=== PATIENT | female | born 1960 | race Caucasian/White ===

== ENCOUNTER 2016-06-26 06:39 | Inpatient (IN) | payer BC ==
--- NOTE | 2016-06-26 07:32 | EDM.PDOC ---
ED HPI GENERAL MEDICAL PROBLEM - General Chief Complaint: General Stated Complaint: NAUSA FEVER Time Seen by Provider: 06/26/16 07:48 Source of Information: Reports: Patient History Limitations: Reports: No limitations - History of Present Illness INITIAL COMMENTS - FREE TEXT/NARRATIVE: pt has had a fever and she has had pain in the lower abdoman. She states this is more on the left than the rt. She has had some mucousy stools. She has not vomited but she has been nauseated. She had a colonoscopy 3-4 years ago. She has had a total hysterectomy. Onset: gradual Duration: Day(s):, Other (pt took a laxative yesterday and she did clean out well. ) Location: Reports: abdomen Associated Symptoms: Reports: loss of appetite, nausea/vomiting Back Pain Score (Numeric/FACES): 3 - Related Data Allergies Allergy/AdvReac Type Severity Reaction Status Date / Time doxycycline Allergy Hives Verified 12/13/15 14:22 Sulfa (Sulfonamide Allergy Hives Verified 12/13/15 14:22 Antibiotics) trimethoprim Allergy Hives Verified 12/13/15 14:22 Home Meds: Home Meds Albuterol [Proair HFA] 1 puff PO ASDIRECTED PRN 12/13/15 [History] Estradiol 1 mg PO DAILY 12/13/15 [History] Formoterol/Mometasone [Dulera 100 MCG/5 MCG] 120 mg PO DAILY 12/13/15 [History] Levothyroxine [Synthroid] 50 mcg PO ACBREAKFAST 12/13/15 [History] Montelukast [Singulair] 10 mg PO BEDTIME 12/13/15 [History] Multivitamin [Multi-Vitamin Daily] 1 tab PO DAILY 06/26/16 [History] [place]-3 Fatty Acids [Fish Oil] 300 mg PO ASDIRECTED 06/26/16 [History] Amoxicillin/Potassium Clav [Augmentin 875-125 Tablet] 1 each PO BID #14 tablet 06/29/16 [Rx] Past Medical History 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 able to urinate since fell Endocrine/Metabolic History: Reports: Hypothyroidism Social & Family History - Family History Oncologic: Reports: Bone, Leukemia, Pancreatic, Skin - Tobacco Use Smoking Status *Q: Former Smoker - Recreational Drug Use Recreational Drug Use: No ED ROS GENERAL - Review of Systems Review Of Systems: See Below Constitutional: Reports: fever, chills, decreased appetite HEENT: Reports: No symptoms Respiratory: Reports: no symptoms Cardiovascular: Reports: No symptoms Endocrine: Reports: no symptoms GI/Abdominal: Reports: Abdominal pain, Nausea : Reports: no symptoms Musculoskeletal: Reports: no symptoms Skin: Reports: no symptoms ED EXAM, GENERAL - Physical Exam Exam: See Below Free Text/Narrative:: pt arrived with pain in the lower abdoman which started a few days ago and has gotten progressively worse Exam Limited By: No limitations General Appearance: alert, moderate distress Ears: normal TMs Nose: normal inspection Throat/Mouth: Normal inspection Head: atraumatic Neck: normal inspection Respiratory/Chest: no respiratory distress Cardiovascular: regular rate, rhythm GI/Abdominal: guarding, tender, other (pt is quite guarded in the left lower abdoman. ) Rectal (Female) Exam: Deferred Back Exam: normal inspection Extremities: normal inspection Neurological: alert, oriented, normal cognition Psychiatric: normal affect Course - Vital Signs Last Recorded V/S: Last Vital Signs Temp 36.7 C 06/29/16 11:15 Pulse 68 06/29/16 11:15 Resp 16 06/29/16 11:15 BP 141/81 H 06/29/16 11:15 Pulse Ox 100 06/29/16 11:15 - Orders/Labs/Meds Labs: Laboratory Tests 06/26/16 06/26/16 06/26/16 Range/Units 07:51 07:51 07:51 WBC 11.9 H (4.5-11.0) K/uL RBC 4.35 (3.30-5.50) M/uL Hgb 12.2 (12.0-15.0) g/dL Hct 37.5 (36.0-48.0) % MCV 86 (80-98) fL MCH 28 (27-31) pg MCHC 33 (32-36) % Plt Count 259 (150-400) K/uL Neut % (Auto) 76 H (36-66) % Lymph % (Auto) 12 L (24-44) % [place] % (Auto) 10 H (2-6) % Eos % (Auto) 2 (2-4) % Baso % (Auto) 1 (0-1) % Sodium 137 L (140-148) mmol/L Potassium 3.6 (3.6-5.2) mmol/L Chloride 102 (100-108) mmol/L Carbon Dioxide 26 (21-32) mmol/L Anion Gap 12.6 (5.0-14.0) mmol/L BUN 7 (7-18) mg/dL Creatinine 1.1 H (0.6-1.0) mg/dL Est Cr Clr Drug Dosing 50.49 mL/min Estimated GFR (MDRD) 52 L (>60) Glucose 97 (74-106) mg/dL Calcium 8.5 (8.5-10.1) mg/dL Total Bilirubin 0.4 (0.2-1.0) mg/dL AST 10 L (15-37) U/L ALT 16 (12-78) U/L Alkaline Phosphatase 29 L (46-116) U/L C-Reactive Protein (0.0-0.3) mg/dL Total Protein 7.1 (6.4-8.2) g/dL Albumin 3.4 (3.4-5.0) g/dL Globulin 3.7 H (2.3-3.5) g/dL Albumin/Globulin Ratio 0.9 L (1.2-2.2) TSH, Ultra Sensitive 4.159 H (0.358-3.740) uIU/mL Urine Color Urine Appearance Urine pH (4.5-8.0) Ur Specific [place] (1.008-1.030) Urine Protein (NEGATIVE) mg/dL Urine Glucose (UA) (NEGATIVE) mg/dL Urine Ketones (NEGATIVE) mg/dL Urine Occult Blood (NEGATIVE) Urine Nitrite (NEGATIVE) Urine Bilirubin (NEGATIVE) Urine Urobilinogen (NORMAL) mg/dL Ur Leukocyte Esterase (NEGATIVE) Urine RBC (0-5) Urine WBC (0-5) Ur Epithelial Cells Amorphous Sediment Urine Bacteria Urine Mucus 06/26/16 06/26/16 Range/Units 07:51 08:18 WBC (4.5-11.0) K/uL RBC (3.30-5.50) M/uL Hgb (12.0-15.0) g/dL Hct (36.0-48.0) % MCV (80-98) fL MCH (27-31) pg MCHC (32-36) % Plt Count (150-400) K/uL Neut % (Auto) (36-66) % Lymph % (Auto) (24-44) % [place] % (Auto) (2-6) % Eos % (Auto) (2-4) % Baso % (Auto) (0-1) % Sodium (140-148) mmol/L Potassium (3.6-5.2) mmol/L Chloride (100-108) mmol/L Carbon Dioxide (21-32) mmol/L Anion Gap (5.0-14.0) mmol/L BUN (7-18) mg/dL Creatinine (0.6-1.0) mg/dL Est Cr Clr Drug Dosing mL/min Estimated GFR (MDRD) (>60) Glucose (74-106) mg/dL Calcium (8.5-10.1) mg/dL Total Bilirubin (0.2-1.0) mg/dL AST (15-37) U/L ALT (12-78) U/L Alkaline Phosphatase (46-116) U/L C-Reactive Protein 13.80 H (0.0-0.3) mg/dL Total Protein (6.4-8.2) g/dL Albumin (3.4-5.0) g/dL Globulin (2.3-3.5) g/dL Albumin/Globulin Ratio (1.2-2.2) TSH, Ultra Sensitive (0.358-3.740) uIU/mL Urine Color Yellow Urine Appearance Cloudy Urine pH 5.0 (4.5-8.0) Ur Specific [place] 1.010 (1.008-1.030) Urine Protein Negative (NEGATIVE) mg/dL Urine Glucose (UA) Normal (NEGATIVE) mg/dL Urine Ketones Negative (NEGATIVE) mg/dL Urine Occult Blood Moderate (NEGATIVE) Urine Nitrite Negative (NEGATIVE) Urine Bilirubin Negative (NEGATIVE) Urine Urobilinogen Normal (NORMAL) mg/dL Ur Leukocyte Esterase Negative (NEGATIVE) Urine RBC 0-5 (0-5) Urine WBC Not seen (0-5) Ur Epithelial Cells Moderate Amorphous Sediment Not seen Urine Bacteria Many Urine Mucus Not seen Meds: Medications Discontinued Medications Generic Name Dose Route Start Last Admin Trade Name Freq PRN Reason Stop Dose Admin Acetaminophen 650 mg 06/26/16 15:03 06/29/16 02:58 Tylenol PO 650 mg Q4H PRN Administration Pain (Mild 1-3)/fever Albuterol 0 gm 06/26/16 15:03 06/28/16 06:24 Ventolin Hfa INH 2 puff ASDIRECTED PRN Administration Shortness of Breath Albuterol 2.5 mg 06/26/16 15:03 Proventil Neb Soln NEB Q4H PRN Shortness Of Breath/wheezing Enoxaparin Sodium 40 mg 06/26/16 16:00 06/28/16 16:54 Lovenox SUBCUT 40 mg Q24H MANAS Administration Estradiol 1 mg 06/27/16 09:00 06/29/16 08:28 Estradiol PO 1 mg DAILY MANAS Administration Hydromorphone HCl 0 mg 06/26/16 15:03 06/26/16 15:41 Dilaudid [place] 15 Mg In Ns 30 Ml IV 15 mg ASDIRECTED PRN Administration Pain Protocol Sodium Chloride 1,000 mls @ 999 mls/hr 06/26/16 07:45 06/26/16 07:58 Normal Saline IV 999 mls/hr ASDIRECTED MANAS Administration Sodium Chloride 75 mls @ 3 mls/sec 06/26/16 08:45 Normal Saline IV 06/26/16 08:46 ASDIRECTED MANAS Ampicillin Sodium/Sulbactam 50 mls @ 100 mls/hr 06/26/16 11:05 06/26/16 11:28 Sodium 1.5 gm/ Sodium Chloride IV 06/26/16 11:34 100 mls/hr ONETIME ONE Administration Ampicillin Sodium/Sulbactam 50 mls @ 100 mls/hr 06/26/16 16:00 06/29/16 10:21 Sodium 1.5 gm/ Sodium Chloride IV 100 mls/hr Q6HR MANAS Administration Sodium Chloride 1,000 mls @ 125 mls/hr 06/26/16 15:03 06/27/16 08:25 Normal Saline IV 125 mls/hr ASDIRECTED MANAS Administration Magnesium Sulfate 2 gm/ Premix 50 mls @ 25 mls/hr 06/27/16 09:00 06/27/16 10: 50 IV 06/27/16 10:59 25 mls/hr ONETIME ONE Administration Potassium Chloride 20 meq/ 112 mls @ 56 mls/hr 06/27/16 09:30 06/27/16 12:45 Lidocaine HCl 2 ml/ Sodium IV 06/27/16 13:29 56 mls/hr Chloride Q2H MANAS Administration Iopamidol 100 ml 06/26/16 08:34 Isovue-300 (61%) IV 06/27/16 08:35 . DIRECTED PRN RADIOLOGY EXAM Lactobacillus Rhamnosus 2 cap 06/28/16 13:15 06/29/16 08:27 Culturelle PO 2 cap BID MANAS Administration Levothyroxine Sodium 50 mcg 06/27/16 07:30 06/29/16 07:22 Synthroid PO 50 mcg ACBREAKFAST MANAS Administration Mometasone Furoate/Formoterol Fumar 0 puff 06/27/16 09:00 06/29/16 08:29 Dulera 100-5 Mcg IH 1 puff DAILY MANAS Administration Montelukast Sodium 10 mg 06/26/16 21:00 06/28/16 20:57 Singulair PO 10 mg BEDTIME MANAS Administration Naloxone HCl 0.4 mg 06/26/16 15:03 Narcan IVPUSH Q2M PRN Respiratory Distress Ondansetron HCl 4 mg 06/26/16 07:43 06/26/16 07:59 Zofran IVPUSH 06/26/16 07:44 4 mg ONETIME ONE Administration Ondansetron HCl 4 mg 06/26/16 15:03 Zofran IV Q4H PRN Nausea/Vomiting Oxycodone HCl 5 mg 06/27/16 12:14 Oxycodone PO Q4H PRN Pain Sodium Chloride 10 ml 06/26/16 08:34 Saline Flush FLUSH 06/26/16 08:35 ONETIME PRN per radiology protocol Sodium Chloride 10 ml 06/26/16 15:03 Saline Flush FLUSH ASDIRECTED PRN Keep Vein Open - Re-Assessments/Exams Free Text/Narrative Re-Assessment/Exam: 06/26/16 11:09 pt had a crp greater than 13. She has a mild e;levation in her wbc. She had a cat scan which shows a 9 cm area of inflamation in the sigmoid colon. In this area there was some diverticulum and she could have a diverticulitis. There is fat stranding around the site. Pt will be started on unisyn 1.[address] Orr will see her if the is a bed available. Departure - Departure Time of Disposition: 11:15 Disposition: Admitted As Inpatient 67 Condition: fair Clinical Impression: Colitis, Diverticulitis
[2016-06-26] MEDS ORDERED: Ondansetron 4 MG/2 ML SDV IVPUSH ONE (07:43)
[2016-06-26] MEDS ORDERED: Sodium Chloride 0.9% 1,000 ML IV SCH (07:45)
[2016-06-26] MEDS ORDERED: Iopamidol 612 MG/ML 100 ML Bottle IV PRN (08:34)
[2016-06-26] MEDS ORDERED: Sodium Chloride 0.9% 10 ML Syringe FLUSH PRN ×2 (08:34→15:03)
[2016-06-26] MEDS ORDERED: Sodium Chloride 0.9% 75 ML IV SCH (08:45)
--- NOTE | 2016-06-26 09:32 | CT ---
Abdomen pelvis CT. History: Lower abdominal pain. Technique: IV contrast was administered followed by axial imaging from the lung bases extending thro ugh the abdomen and pelvis. Coronal images were reconstructed. Total DLP: 580. Findings: Limited evaluation of the lower lung chappell demonstrates no abnormalities. There is mild fatty infiltration of the liver. There is a small stone in the gallbladder. There is n o wall thickening or evidence for inflammation. The pancreas and adjacent tissues are unremarkable. The spleen is normal in size. The kidneys demonstrate symmetric excretion of contrast. There is a 1. 3 cm cyst of the medial upper pole left kidney. There is a 10 cm segment of sigmoid colon which demonstrates significant wall edema. There are scatt ered colonic diverticula with adjacent indurated fat. There is mild free fluid accumulating within t he pelvis. There is no large or small bowel distention. There is no free air. Impression: 1. Elongated segment of sigmoid colon with wall thickening. The finding likely reflects a colitis. C onsider possible infectious colitis versus inflammatory bowel disease. There is also induration of t he fat adjacent to several of the diverticula. Correlation should also made for possible acute diver ticulitis.
[2016-06-26] MEDS ORDERED: Ampicillin/Sulbactam Na 1.5 GM in Sodium Chloride 0.9% 50 ML IV ONE (11:05)
[2016-06-26] MEDS ORDERED: Naloxone 0.4 MG/ML SDV IVPUSH PRN (15:03)
[2016-06-26] MEDS ORDERED: Ondansetron 4 MG/2 ML SDV IV PRN (15:03)
[2016-06-26] MEDS ORDERED: Albuterol 0.083% 2.5 MG/3 ML Neb Soln NEB PRN (15:03)
[2016-06-26] MEDS ORDERED: HYDROmorphone/Normal Saline 15 MG/30 ML PCA IV PRN (15:03)
[2016-06-26] MEDS: Ampicillin/Sulbactam Na 1.5 GM in Sodium Chloride 0.9% 50 ML IV SCH ×2 (15:52→21:23)
[2016-06-26] MEDS: Enoxaparin 40 MG/0.4 ML Syringe SUBCUT SCH (15:53)
--- NOTE | 2016-06-26 18:21 | PCM.HP ---
H&P History of Present Illness - General Date of Service: 06/26/16 Admit Problem/Dx: Admission Diagnosis/Problem Admission Diagnosis/Problem Diverticulitis Source of Information: Patient, Family, Provider, RN notes reviewed History Limitations: Reports: No limitations - History of Present Illness Initial Comments - Free Text/Narative: This patient is a 55-year-old woman who is admitted through the emergency department with fever and abdominal pain secondary to diverticulitis. She's not felt well over the past 3-4 days, progressive symptoms of pain occurring in the suprapubic left lower quadrant area. Pain is described as intense and sharp , does not necessarily radiate and is present intermittently. It can occur with changes in position or activity. Associated with this has been fever and symptoms of nausea. On evaluation in the emergency department she is noted to have a modest elevation in white blood cell count, CT scan of the abdomen and pelvis shows evidence of inflammation in the sigmoid colon consistent with colitis versus diverticulitis. Back Pain Score (Numeric/FACES): 3 - Related Data Allergies/Adverse Reactions: Allergies Allergy/AdvReac Type Severity Reaction Status Date / Time doxycycline Allergy Hives Verified 12/13/15 14:22 Sulfa (Sulfonamide Allergy Hives Verified 12/13/15 14:22 Antibiotics) trimethoprim Allergy Hives Verified 12/13/15 14:22 Home Medications: Home Meds Albuterol [Proair HFA] 1 puff PO ASDIRECTED PRN 12/13/15 [History] Estradiol [Estradiol] 1 mg PO DAILY 12/13/15 [History] Formoterol/Mometasone [Dulera 100 MCG/5 MCG] 120 mg PO DAILY 12/13/15 [History] Levothyroxine [Synthroid] 50 mcg PO ACBREAKFAST 12/13/15 [History] Montelukast [Singulair] 10 mg PO BEDTIME 12/13/15 [History] Multivitamin [Multi-Vitamin Daily] 1 tab PO DAILY 06/26/16 [History] [place]-3 Fatty Acids [Fish Oil] 300 mg PO ASDIRECTED 06/26/16 [History] Past Medical History 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 able to urinate since fell Endocrine/Metabolic History: Reports: Hypothyroidism - Past Surgical History GI Surgical History: Reports: Colonoscopy Female Surgical History: Reports: Hysterectomy Social & Family History - Family History Family Medical History: Noncontributory Oncologic: Reports: Bone, Leukemia, Pancreatic, Skin - Tobacco Use Smoking Status *Q: Former Smoker Used Tobacco, but Quit: Yes Month Tobacco Last Used: 10 years Second Hand Smoke Exposure: No - Caffeine Use Caffeine Use: Reports: Coffee Other Caffeine Use: coffee daily - Alcohol Use Days Per Week of Alcohol Use: 0 - Recreational Drug Use Recreational Drug Use: No H&P Review of Systems - Review of Systems: Review Of Systems: See Below General: Reports: fever, chills, weakness, decreased appetite HEENT: Reports: no symptoms Pulmonary: Reports: no symptoms Cardiovascular: Reports: no symptoms Gastrointestinal: Reports: Abdominal pain, Diarrhea, Decreased appetite, Nausea. Denies: Black stool, Bloody stool, Constipation, Difficulty swallowing , Distension, Vomiting Genitourinary: Reports: no symptoms Musculoskeletal: Reports: no symptoms Skin: Reports: no symptoms Psychiatric: Reports: no symptoms Neurological: Reports: no symptoms Hematologic/Lymphatic: Reports: no symptoms Immunologic: Reports: no symptoms Exam - Exam Exam: See Below - Vital Signs Vital Signs: Last Vital Signs Temp 99 F 06/26/16 15:27 Pulse 93 06/26/16 15:27 Resp 16 06/26/16 15:27 BP 128/68 06/26/16 15:27 Pulse Ox 99 06/26/16 15:27 Weight: 160 lb 12.8 oz - Exam Quality Assessment: DVT prophylaxis General: alert, oriented, cooperative, moderate distress HEENT: Conjunctiva clear, Hearing intact, Mucosa moist & pink, Nares patent, Normal nasal septum, Posterior pharynx clear, Pupils equal, Pupils reactive Neck: supple, trachea midline, +2 carotid pulse wo bruit Lungs: Clear to auscultation, Normal respiratory effort Cardiovascular: regular rate, regular rhythm, normal S1, normal S2. No: irregular rhythm, bradycardia, tachycardia, systolic murmur, diastolic murmur Abdomen: soft, guarding, rebound, tenderness, hypoactive bowel sounds. No: organomegaly, distention, rigidity Back Exam: normal inspection, full range of motion, NT Extremities: 3, normal inspection, 10 Skin: warm, dry, intact Neurological: cranial nerves intact, strength equal bilateral, normal speech, normal tone, sensation intact. No: focal deficit Neuro Extensive - Mental Status: alert, oriented x3, normal mood/affect, normal cognition, memory intact - Patient Data Result Diagrams: 06/26/16 07:51 06/26/16 07:51 *Q Meaningful Use (ADM) - VTE *Q VTE Criteria *Q: - VTE Risk Assess *Q Each Risk Factor Represents 1 Point: Age 41 - 59 years Total Score 1 Point Risk Factors: 1 Each Risk Factor Represents 2 Points: None Total Score 2 Point Risk Factors: 0 Each Risk Factor Represents 3 Points: None Total Score 3 Point Risk Factors: 0 Each Risk Factor Represents 5 Points: None Total Score 5 Point Risk Factors: 0 Venous Thromboembolism Risk Factor Score *Q: 1 - Stroke *Q Stroke Criteria *Q: - AMI *Q AMI Criteria *Q: Problem List Initiated/Reviewed/Updated: Yes Orders Last 24hrs: Active Orders 24 hr Category Date Time Status Patient Status [ADT] Routine ADT 06/26/16 15:03 Active Communication Order [RC] STAT Care 06/26/16 15:03 Active Intake and Output [RC] QSHIFT Care 06/26/16 15:03 Active Notify Provider Vital Signs [RC] ASDIRECTED Care 06/26/16 15:03 Active Notify Provider [RC] PRN Care 06/26/16 15:03 Active Oxygen Therapy [RC] PRN Care 06/26/16 15:03 Active MOLECULAR BIOLOGY PROFESSOR Record [RC] PER UNIT ROUTINE Care 06/26/16 15:03 Active Peripheral IV Care [RC] . DIRECTED Care 06/26/16 15:03 Active Pulse Oximetry [RC] CONTINUOUS Care 06/26/16 15:03 Active RT Aerosol Therapy [RC] ASDIRECTED Care 06/26/16 15:03 Active Up ad Ida [RC] ASDIRECTED Care 06/26/16 15:03 Active VTE/DVT Education [RC] Per Unit Routine Care 06/26/16 15:03 Active Vital Signs [RC] Q4H Care 06/26/16 15:03 Active Nothing per Oral Now Diet [DIET] Diet 06/26/16 Lunch Active BASIC METABOLIC PANEL,BMP [CHEM] AM Lab 06/27/16 05:11 Ordered CBC WITH AUTO DIFF [HEME] AM Lab 06/27/16 05:11 Ordered MAGNESIUM [CHEM] AM Lab 06/27/16 05:11 Ordered Acetaminophen [Tylenol] Med 06/26/16 15:03 Active 650 mg PO Q4H PRN Albuterol [Proventil Neb Soln] Med 06/26/16 15:03 Active 2.5 mg NEB Q4H PRN Ampicillin/Sulbactam Na [Unasyn] 1.5 gm Med 06/26/16 16:00 Active Sodium Chloride 0.9% [Normal Saline] 50 ml IV Q6HR Enoxaparin [Lovenox] Med 06/26/16 16:00 Active 40 mg SUBCUT Q24H HYDROmorphone/Normal Saline [Dilaudid MOLECULAR BIOLOGY PROFESSOR 15 MG in NS Med 06/26/16 15:03 Active 30 ML] See Protocol IV ASDIRECTED PRN Naloxone [Narcan] Med 06/26/16 15:03 Active 0.4 mg IVPUSH Q2M PRN Ondansetron [Zofran] Med 06/26/16 15:03 Active 4 mg IV Q4H PRN Sodium Chloride 0.9% [Normal Saline] 1,000 ml Med 06/26/16 15:03 Active IV ASDIRECTED Sodium Chloride 0.9% [Saline Flush] Med 06/26/16 15:03 Active 10 ml FLUSH ASDIRECTED PRN Medication Discontinuation Instructions [OM.PC] Stat Oth 06/26/16 15:03 Ordered Peripheral IV Insertion Adult [OM.PC] Routine Oth 06/26/16 15:03 Ordered Resuscitation Status Routine Resus Stat 06/26/16 14:39 Ordered Medication Orders Acetaminophen (Tylenol) 650 mg PO Q4H PRN PRN Reason: Pain (Mild 1-3)/fever Albuterol (Ventolin Hfa) 0 gm INH ASDIRECTED PRN PRN Reason: Shortness of Breath Albuterol (Proventil Neb Soln) 2.5 mg NEB Q4H PRN PRN Reason: Shortness Of Breath/wheezing Enoxaparin Sodium (Lovenox) 40 mg SUBCUT Q24H MANAS Last Admin: 06/26/16 15:53 Dose: 40 mg Estradiol (Estradiol) 1 mg PO DAILY MANAS Hydromorphone HCl (Dilaudid Mammography Technologist 15 Mg In Ns 30 Ml) 0 mg IV ASDIRECTED PRN; Protocol PRN Reason: Pain Last Admin: 06/26/16 15:41 Dose: 15 mg Ampicillin Sodium/Sulbactam (Sodium 1.5 gm/ Sodium Chloride) 50 mls @ 100 mls/ hr IV Q6HR MANAS Last Admin: 06/26/16 15:52 Dose: 100 mls/hr Sodium Chloride (Normal Saline) 1,000 mls @ 125 mls/hr IV ASDIRECTED MANAS Levothyroxine Sodium (Synthroid) 50 mcg PO ACBREAKFAST MANAS Mometasone Furoate/Formoterol Fumar (Dulera 100-5 Mcg) 0 puff IH DAILY MANAS Montelukast Sodium (Singulair) 10 mg PO BEDTIME MANAS Naloxone HCl (Narcan) 0.4 mg IVPUSH Q2M PRN PRN Reason: Respiratory Distress Ondansetron HCl (Zofran) 4 mg IV Q4H PRN PRN Reason: Nausea/Vomiting Sodium Chloride (Saline Flush) 10 ml FLUSH ASDIRECTED PRN PRN Reason: Keep Vein Open Assessment/Plan Comment:: ASSESSMENT AND PLAN DIVERTICULITIS-may also be a segment of colitis but appeared to be fairly suspicious for diverticulitis. Symptoms present over the past 3-4 days, no previous history of similar symptoms. -N.p.o. -IV fluids for hydration -Antiemetic therapy as needed -Dilaudid via MOLECULAR BIOLOGY PROFESSOR for pain control -Unasyn 1.5 g IV every 6 hours HYPOTHYROIDISM -Continue outpatient thyroid replacement medication MAINTENANCE ISSUES -DVT prophylaxis; Lovenox 40 mg subcutaneous daily -GI prophylaxis; none indicated -[place]arosa catheter; not indicated -Nutrition; n.p.o. -Nicotine dependence; not required CODE STATUS-FULL CODE ADMISSION STATUS-patient will be admitted to inpatient status, expect at least a 2 night hospital stay for evaluation and management of problems as outlined above. At the time of this admission I do not reasonably expected evaluation and management of this problem will require more than a 96 hour hospital stay. DISPOSITION-anticipate discharge to home after the hospital stay. PRIMARY CARE PROVIDER-Macrina Crook
[2016-06-26] MEDS: Albuterol 8 GM Inhaler INH PRN (20:22)
[2016-06-26] MEDS: Montelukast 10 MG Tab PO SCH (21:23)
[2016-06-27] MEDS: Sodium Chloride 0.9% 1,000 ML IV SCH ×2 (00:21→08:25)
[2016-06-27] MEDS: Acetaminophen 325 MG Tab PO PRN ×2 (03:21→09:01)
[2016-06-27] MEDS: Ampicillin/Sulbactam Na 1.5 GM in Sodium Chloride 0.9% 50 ML IV SCH ×4 (03:22→21:16)
[2016-06-27] MEDS ORDERED: Potassium Chloride 40 MEQ in Premix Bag 1 BAG IV ONE (08:16)
[2016-06-27] MEDS: Levothyroxine 50 MCG Tab PO SCH (08:57)
[2016-06-27] MEDS: Estradiol 0.5 MG Tab PO SCH (08:58)
[2016-06-27] MEDS ORDERED: Magnesium Sulfate/Water 2 GM in Premix Bag 1 BAG IV ONE (09:00)
[2016-06-27] MEDS: Potassium Chloride 20 MEQ, Lidocaine 1% 2 ML in Sodium Chloride 0.9% 100 ML IV SCH ×2 (10:25→12:45)
[2016-06-27] MEDS: Formoterol/Mometasone 100-5 MCG 8.8 GM Inhaler IH SCH (10:59)
[2016-06-27] MEDS ORDERED: oxyCODONE 5 MG Tab PO PRN (12:14)
--- NOTE | 2016-06-27 12:19 | PCM.PN ---
- General Info Date of Service: 06/27/16 Functional Status: Reports: pain controlled, ambulating, urinating - Review of Systems General: Denies: fever, weakness, chills Pulmonary: Reports: no symptoms Cardiovascular: Reports: no symptoms Gastrointestinal: Reports: Abdominal pain. Denies: Diarrhea, Nausea, Vomiting Systems Review Comment:: This patient has improved significantly since admission, currently denies significant abdominal pain, nausea, or vomiting. She is been active enough walking in the halls on a regular basis. Vital signs have been stable and she has remained afebrile, white blood cell count has normalized. - Patient Data Vitals - most recent: Last Vital Signs Temp 98.4 F 06/27/16 11:00 Pulse 92 06/27/16 11:00 Resp 18 06/27/16 11:00 BP 124/70 06/27/16 11:00 Pulse Ox 99 06/27/16 11:00 Weight - most recent: 160 lb 12.812 oz I&O - last 24 hours: Intake & Output 06/26/16 06/27/16 06/27/16 22:59 06:59 14:59 Intake Total 230 1410 207 Output Total 100 500 Balance 130 910 207 Lab Results last 24 hrs: Laboratory Results - last 24 hr 06/27/16 06/27/16 Range/Units 04:00 04:00 WBC 7.3 (4.5-11.0) K/uL RBC 3.99 (3.30-5.50) M/uL Hgb 11.0 L (12.0-15.0) g/dL Hct 34.8 L (36.0-48.0) % MCV 87 (80-98) fL MCH 28 (27-31) pg MCHC 32 (32-36) % Plt Count 242 (150-400) K/uL Neut % (Auto) 62 (36-66) % Lymph % (Auto) 24 (24-44) % Sawyer % (Auto) 9 H (2-6) % Eos % (Auto) 5 H (2-4) % Baso % (Auto) 1 (0-1) % Sodium 142 (140-148) mmol/L Potassium 3.3 L (3.6-5.2) mmol/L Chloride 106 (100-108) mmol/L Carbon Dioxide 25 (21-32) mmol/L Anion Gap 14.3 H (5.0-14.0) mmol/L BUN 9 (7-18) mg/dL Creatinine 0.9 (0.6-1.0) mg/dL Est Cr Clr Drug Dosing 61.71 mL/min Estimated GFR (MDRD) > 60 (>60) Glucose 78 (74-106) mg/dL Calcium 7.6 L (8.5-10.1) mg/dL Magnesium 1.7 L (1.8-2.4) mg/dL Med Orders - Current: Current Medications Acetaminophen (Tylenol) 650 mg PO Q4H PRN PRN Reason: Pain (Mild 1-3)/fever Last Admin: 06/27/16 09:01 Dose: 650 mg Albuterol (Ventolin Hfa) 0 gm INH ASDIRECTED PRN PRN Reason: Shortness of Breath Last Admin: 06/26/16 20:22 Dose: 2 puff Albuterol (Proventil Neb Soln) 2.5 mg NEB Q4H PRN PRN Reason: Shortness Of Breath/wheezing Enoxaparin Sodium (Lovenox) 40 mg SUBCUT Q24H [facility] Last Admin: 06/26/16 15:53 Dose: 40 mg Estradiol (Estradiol) 1 mg PO DAILY [facility] Last Admin: 06/27/16 08:58 Dose: 1 mg Ampicillin Sodium/Sulbactam (Sodium 1.5 gm/ Sodium Chloride) 50 mls @ 100 mls/ hr IV Q6HR [facility] Last Admin: 06/27/16 09:50 Dose: 100 mls/hr Potassium Chloride 20 meq/Lidocaine HCl 2 ml/ Sodium Chloride 112 mls @ 56 mls/ hr IV Q2H [facility] Stop: 06/27/16 13:29 Last Admin: 06/27/16 10:25 Dose: 56 mls/hr Levothyroxine Sodium (Synthroid) 50 mcg PO ACBREAKFAST [facility] Last Admin: 06/27/16 08:57 Dose: 50 mcg Mometasone Furoate/Formoterol Fumar (Dulera 100-5 Mcg) 0 puff IH DAILY [facility] Last Admin: 06/27/16 10:59 Dose: 2 puff Montelukast Sodium (Singulair) 10 mg PO BEDTIME [facility] Last Admin: 06/26/16 21:23 Dose: 10 mg Naloxone HCl (Narcan) 0.4 mg IVPUSH Q2M PRN PRN Reason: Respiratory Distress Ondansetron HCl (Zofran) 4 mg IV Q4H PRN PRN Reason: Nausea/Vomiting Oxycodone HCl (Oxycodone) 5 mg PO Q4H PRN PRN Reason: Pain Sodium Chloride (Saline Flush) 10 ml FLUSH ASDIRECTED PRN PRN Reason: Keep Vein Open Discontinued Medications Hydromorphone HCl (Dilaudid Glue Wheel Operator 15 Mg In Ns 30 Ml) 0 mg IV ASDIRECTED PRN; Protocol PRN Reason: Pain Last Admin: 06/26/16 15:41 Dose: 15 mg Sodium Chloride (Normal Saline) 1,000 mls @ 999 mls/hr IV ASDIRECTED [facility] Last Admin: 06/26/16 07:58 Dose: 999 mls/hr Sodium Chloride (Normal Saline) 75 mls @ 3 mls/sec IV ASDIRECTED [facility] Stop: 06/26/16 08:46 Ampicillin Sodium/Sulbactam (Sodium 1.5 gm/ Sodium Chloride) 50 mls @ 100 mls/ hr IV ONETIME ONE Stop: 06/26/16 11:34 Last Admin: 06/26/16 11:28 Dose: 100 mls/hr Sodium Chloride (Normal Saline) 1,000 mls @ 125 mls/hr IV ASDIRECTED [facility] Last Admin: 06/27/16 08:25 Dose: 125 mls/hr Magnesium Sulfate 2 gm/ Premix 50 mls @ 25 mls/hr IV ONETIME ONE Stop: 06/27/16 10:59 Last Admin: 06/27/16 10:50 Dose: 25 mls/hr Iopamidol (Isovue-300 (61%)) 100 ml IV . DIRECTED PRN PRN Reason: RADIOLOGY EXAM Stop: 06/27/16 08:35 Ondansetron HCl (Zofran) 4 mg IVPUSH ONETIME ONE Stop: 06/26/16 07:44 Last Admin: 06/26/16 07:59 Dose: 4 mg Sodium Chloride (Saline Flush) 10 ml FLUSH ONETIME PRN PRN Reason: per radiology protocol Stop: 06/26/16 08:35 - Exam Quality Assessment: DVT prophylaxis General: alert, oriented, cooperative, no acute distress Lungs: Clear to auscultation, Normal respiratory effort Cardiovascular: regular rate, regular rhythm, no murmurs Abdomen: bowel sounds present, soft, no distension, tenderness. No: rigidity, rebound, guarding Extremities: no edema Skin: warm, dry, intact - Problem List Review Problem List Initiated/Reviewed/Updated: Yes - My Orders Last 24 Hours: My Active Orders 06/26/16 14:39 Resuscitation Status Routine 06/26/16 15:03 Patient Status [ADT] Routine Communication Order [RC] STAT Intake and Output [RC] QSHIFT Notify Provider Vital Signs [RC] ASDIRECTED Notify Provider [RC] PRN Oxygen Therapy [RC] PRN Peripheral IV Care [RC] . DIRECTED RT Aerosol Therapy [RC] ASDIRECTED Up ad Ida [RC] ASDIRECTED VTE/DVT Education [RC] Per Unit Routine Vital Signs [RC] Q4H Acetaminophen [Tylenol] 650 mg PO Q4H PRN Albuterol [Proventil Neb Soln] 2.5 mg NEB Q4H PRN Naloxone [Narcan] 0.4 mg IVPUSH Q2M PRN Ondansetron [Zofran] 4 mg IV Q4H PRN Sodium Chloride 0.9% [Saline Flush] 10 ml FLUSH ASDIRECTED PRN Medication Discontinuation Instructions [OM.PC] Stat Peripheral IV Insertion Adult [OM.PC] Routine 06/26/16 16:00 Ampicillin/Sulbactam Na [Unasyn] 1.5 gm Sodium Chloride 0.9% [Normal Saline] 50 ml IV Q6HR Enoxaparin [Lovenox] 40 mg SUBCUT Q24H 06/27/16 09:30 Potassium Chloride 20 meq Lidocaine 1% [Xylocaine 1%] 2 ml Sodium Chloride 0.9 % [Normal Saline] 100 ml IV Q2H 06/27/16 12:14 oxyCODONE 5 mg PO Q4H PRN Convert IV to Saline Lock [OM.PC] Routine 06/27/16 Lunch Clear Liquid Diet [DIET] 06/28/16 05:00 BASIC METABOLIC PANEL,BMP [CHEM] Timed MAGNESIUM [CHEM] Timed - Plan Plan:: ASSESSMENT AND PLAN DIVERTICULITIS-may also be a segment of colitis but appeared to be fairly suspicious for diverticulitis. Significantly improved since admission with almost total resolution of abdominal pain. -Clear liquid diet -Saline lock IV -Antiemetic therapy as needed -Discontinue RECONNAISSANCE MAN -Oxycodone 5 mg by mouth every 4 hours as needed for pain -Unasyn 1.5 g IV every 6 hours HYPOTHYROIDISM -Continue outpatient thyroid replacement medication MAINTENANCE ISSUES -DVT prophylaxis; Lovenox 40 mg subcutaneous daily -GI prophylaxis; none indicated -Delarosa catheter; not indicated -Nutrition; n.p.o. -Nicotine dependence; not required CODE STATUS-FULL CODE ADMISSION STATUS-patient will be admitted to inpatient status, expect at least a 2 night hospital stay for evaluation and management of problems as outlined above. At the time of this admission I do not reasonably expected evaluation and management of this problem will require more than a 96 hour hospital stay. DISPOSITION-anticipate discharge to home after the hospital stay. PRIMARY CARE PROVIDER-Macrina Crook
[2016-06-27] MEDS: Enoxaparin 40 MG/0.4 ML Syringe SUBCUT SCH (17:36)
[2016-06-27] MEDS: Montelukast 10 MG Tab PO SCH (21:14)
[2016-06-28] MEDS: Ampicillin/Sulbactam Na 1.5 GM in Sodium Chloride 0.9% 50 ML IV SCH ×4 (03:46→21:01)
[2016-06-28] MEDS: Albuterol 8 GM Inhaler INH PRN (06:24)
[2016-06-28] MEDS: Levothyroxine 50 MCG Tab PO SCH (07:08)
[2016-06-28] MEDS: Estradiol 0.5 MG Tab PO SCH (08:37)
[2016-06-28] MEDS: Formoterol/Mometasone 100-5 MCG 8.8 GM Inhaler IH SCH (10:16)
--- NOTE | 2016-06-28 13:15 | PCM.PN ---
- General Info Date of Service: 06/28/16 Functional Status: Reports: tolerating diet, ambulating, urinating - Review of Systems General: Reports: no symptoms Pulmonary: Reports: no symptoms Cardiovascular: Reports: no symptoms Gastrointestinal: Reports: Abdominal pain. Denies: Diarrhea, Difficulty swallowing, Nausea, Vomiting Systems Review Comment:: This patient has done well over the past 24 hours, tolerating current diet with almost total resolution of abdominal pain. Vital signs have been stable and she has remained afebrile. - Patient Data Vitals - most recent: Last Vital Signs Temp 97.7 F 06/28/16 11:07 Pulse 89 06/28/16 11:07 Resp 16 06/28/16 11:07 BP 136/80 06/28/16 11:07 Pulse Ox 98 06/28/16 11:07 Weight - most recent: 160 lb 12.812 oz I&O - last 24 hours: Intake & Output 06/27/16 06/28/16 06/28/16 22:59 06:59 14:59 Intake Total 50 858 1060 Output Total 700 2500 1400 Balance -650 -7752 -340 Lab Results last 24 hrs: Laboratory Results - last 24 hr 06/28/16 Range/Units 03:57 Sodium 141 (140-148) mmol/L Potassium 3.7 (3.6-5.2) mmol/L Chloride 108 (100-108) mmol/L Carbon Dioxide 25 (21-32) mmol/L Anion Gap 8.4 (5.0-14.0) mmol/L BUN 4 L D (7-18) mg/dL Creatinine 0.8 (0.6-1.0) mg/dL Est Cr Clr Drug Dosing 69.92 mL/min Estimated GFR (MDRD) > 60 (>60) Glucose 98 (74-106) mg/dL Calcium 7.8 L (8.5-10.1) mg/dL Magnesium 2.1 (1.8-2.4) mg/dL Med Orders - Current: Current Medications Acetaminophen (Tylenol) 650 mg PO Q4H PRN PRN Reason: Pain (Mild 1-3)/fever Last Admin: 06/27/16 09:01 Dose: 650 mg Albuterol (Ventolin Hfa) 0 gm INH ASDIRECTED PRN PRN Reason: Shortness of Breath Last Admin: 06/28/16 06:24 Dose: 2 puff Albuterol (Proventil Neb Soln) 2.5 mg NEB Q4H PRN PRN Reason: Shortness Of Breath/wheezing Enoxaparin Sodium (Lovenox) 40 mg SUBCUT Q24H [facility] Last Admin: 06/27/16 17:36 Dose: 40 mg Estradiol (Estradiol) 1 mg PO DAILY [facility] Last Admin: 06/28/16 08:37 Dose: 1 mg Ampicillin Sodium/Sulbactam (Sodium 1.5 gm/ Sodium Chloride) 50 mls @ 100 mls/ hr IV Q6HR [facility] Last Admin: 06/28/16 10:16 Dose: 100 mls/hr Levothyroxine Sodium (Synthroid) 50 mcg PO ACBREAKFAST [facility] Last Admin: 06/28/16 07:08 Dose: 50 mcg Mometasone Furoate/Formoterol Fumar (Dulera 100-5 Mcg) 0 puff IH DAILY [facility] Last Admin: 06/28/16 10:16 Dose: 1 puff Montelukast Sodium (Singulair) 10 mg PO BEDTIME [facility] Last Admin: 06/27/16 21:14 Dose: 10 mg Naloxone HCl (Narcan) 0.4 mg IVPUSH Q2M PRN PRN Reason: Respiratory Distress Ondansetron HCl (Zofran) 4 mg IV Q4H PRN PRN Reason: Nausea/Vomiting Oxycodone HCl (Oxycodone) 5 mg PO Q4H PRN PRN Reason: Pain Sodium Chloride (Saline Flush) 10 ml FLUSH ASDIRECTED PRN PRN Reason: Keep Vein Open Discontinued Medications Hydromorphone HCl (Dilaudid Motor Tune Up Specialist 15 Mg In Ns 30 Ml) 0 mg IV ASDIRECTED PRN; Protocol PRN Reason: Pain Last Admin: 06/26/16 15:41 Dose: 15 mg Sodium Chloride (Normal Saline) 1,000 mls @ 999 mls/hr IV ASDIRECTED [facility] Last Admin: 06/26/16 07:58 Dose: 999 mls/hr Sodium Chloride (Normal Saline) 75 mls @ 3 mls/sec IV ASDIRECTED [facility] Stop: 06/26/16 08:46 Ampicillin Sodium/Sulbactam (Sodium 1.5 gm/ Sodium Chloride) 50 mls @ 100 mls/ hr IV ONETIME ONE Stop: 06/26/16 11:34 Last Admin: 06/26/16 11:28 Dose: 100 mls/hr Sodium Chloride (Normal Saline) 1,000 mls @ 125 mls/hr IV ASDIRECTED [facility] Last Admin: 06/27/16 08:25 Dose: 125 mls/hr Magnesium Sulfate 2 gm/ Premix 50 mls @ 25 mls/hr IV ONETIME ONE Stop: 06/27/16 10:59 Last Admin: 06/27/16 10:50 Dose: 25 mls/hr Potassium Chloride 20 meq/Lidocaine HCl 2 ml/ Sodium Chloride 112 mls @ 56 mls/ hr IV Q2H [facility] Stop: 06/27/16 13:29 Last Admin: 06/27/16 12:45 Dose: 56 mls/hr Iopamidol (Isovue-300 (61%)) 100 ml IV . DIRECTED PRN PRN Reason: RADIOLOGY EXAM Stop: 06/27/16 08:35 Ondansetron HCl (Zofran) 4 mg IVPUSH ONETIME ONE Stop: 06/26/16 07:44 Last Admin: 06/26/16 07:59 Dose: 4 mg Sodium Chloride (Saline Flush) 10 ml FLUSH ONETIME PRN PRN Reason: per radiology protocol Stop: 06/26/16 08:35 - Exam Quality Assessment: DVT prophylaxis General: alert, oriented, cooperative, no acute distress Lungs: Clear to auscultation, Normal respiratory effort Cardiovascular: regular rate, regular rhythm Abdomen: bowel sounds present, soft, no distension, tenderness. No: rigidity, rebound, guarding, distension Extremities: no edema Skin: warm, dry, intact - Problem List Review Problem List Initiated/Reviewed/Updated: Yes - My Orders Last 24 Hours: My Active Orders 06/27/16 12:14 oxyCODONE 5 mg PO Q4H PRN Convert IV to Saline Lock [OM.PC] Routine 06/28/16 Lunch Post Surgical Soft [Soft Diet] [DIET] - Plan Plan:: ASSESSMENT AND PLAN DIVERTICULITIS-may also be a segment of colitis but appeared to be fairly suspicious for diverticulitis. Significantly improved since admission with almost total resolution of abdominal pain. -Soft diet -Saline lock IV -Antiemetic therapy as needed -Oxycodone 5 mg by mouth every 4 hours as needed for pain -Unasyn 1.5 g IV every 6 hours HYPOTHYROIDISM -Continue outpatient thyroid replacement medication MAINTENANCE ISSUES -DVT prophylaxis; Lovenox 40 mg subcutaneous daily -GI prophylaxis; none indicated -Delarosa catheter; not indicated -Nutrition; n.p.o. -Nicotine dependence; not required CODE STATUS-FULL CODE ADMISSION STATUS-patient will be admitted to inpatient status, expect at least a 2 night hospital stay for evaluation and management of problems as outlined above. At the time of this admission I do not reasonably expected evaluation and management of this problem will require more than a 96 hour hospital stay. DISPOSITION-anticipate discharge to home tomorrow PRIMARY CARE PROVIDER-Macrina Crook
[2016-06-28] MEDS: Lactobacillus Rhamnosus GG (Probiotic) Cap PO SCH ×2 (13:53→20:57)
[2016-06-28] MEDS: Enoxaparin 40 MG/0.4 ML Syringe SUBCUT SCH (16:54)
[2016-06-28] MEDS: Montelukast 10 MG Tab PO SCH (20:57)
[2016-06-29] MEDS: Acetaminophen 325 MG Tab PO PRN (02:58)
[2016-06-29] MEDS: Ampicillin/Sulbactam Na 1.5 GM in Sodium Chloride 0.9% 50 ML IV SCH ×2 (03:00→10:21)
[2016-06-29] MEDS: Levothyroxine 50 MCG Tab PO SCH (07:22)
[2016-06-29] MEDS: Lactobacillus Rhamnosus GG (Probiotic) Cap PO SCH (08:27)
[2016-06-29] MEDS: Estradiol 0.5 MG Tab PO SCH (08:28)
[2016-06-29] MEDS: Formoterol/Mometasone 100-5 MCG 8.8 GM Inhaler IH SCH (08:29)
--- NOTE | 2016-06-29 11:02 | PCM.DCSUM1 ---
Discharge Summary - Hospital Course Brief History: This patient is a 55-year-old woman who was admitted through the emergency department with nausea, fever, and abdominal pain secondary to diverticulitis. - Discharge Data Discharge Date: 06/29/16 Discharge Disposition: Home, Self-Care 01 Condition: Good - Discharge Diagnosis/Problem(s) (1) Diverticulitis large intestine SNOMED Code(s): 5021500 ICD Code: K57.32 - DVTRCLI OF LG INT W/O PERFORATION OR ABSCESS W/O BLEEDING Status: Acute Current Visit: Yes Qualifiers: Diverticulitis bleeding: without bleeding Diverticulitis complication: without perforation or abscess Qualified Code(s): K57.32 - Diverticulitis of large intestine without perforation or abscess without bleeding - Patient Summary/Data Hospital Course: Ms. Beck is a 55-year-old woman who developed symptoms of abdominal pain associated with nausea and fever for approximately 3 days prior to admission. On evaluation in the emergency department was noted to have a normal white blood cell count but an elevated CRP. CT scan of the abdomen showed a 10 cm segment in the sigmoid colon consistent with colitis versus diverticulitis. There was no evidence of perforation or abscess noted on the CT scan. She was given IV fluids for hydration and initially kept n.p.o. IV antibiotics were initiated with Unasyn 1.5 g IV every 6 hours. By the following day she had good improvement in her symptoms and was afebrile. She was started on clear liquid diet which was advanced to a soft diet by the time of discharge. At the time of discharge she had no further symptoms of abdominal pain and had been hemodynamically stable as well as afebrile for the past 2 days. She will remain on a soft diet and activity will be as tolerated. She will be on oral antibiotic therapy with Augmentin 875 for an additional week. Followup appointment will be scheduled with her primary care provider within one week. - Patient Instructions Diet: GI Soft/Low Residue/Low Fiber Activity: As Tolerated Other/Special Instructions: Schedule followup appointment with Macrina Crook within one week. Take probiotic at least twice daily. - Discharge Plan Prescriptions/Med Rec: Amoxicillin/Potassium Clav [Augmentin 875-125 Tablet] 1 each PO BID #14 tablet Home Medications: Home Meds Albuterol [Proair HFA] 1 puff PO ASDIRECTED PRN 12/13/15 [History] Estradiol 1 mg PO DAILY 12/13/15 [History] Formoterol/Mometasone [Dulera 100 MCG/5 MCG] 120 mg PO DAILY 12/13/15 [History] Levothyroxine [Synthroid] 50 mcg PO ACBREAKFAST 12/13/15 [History] Montelukast [Singulair] 10 mg PO BEDTIME 12/13/15 [History] Multivitamin [Multi-Vitamin Daily] 1 tab PO DAILY 06/26/16 [History] [place]-3 Fatty Acids [Fish Oil] 300 mg PO ASDIRECTED 06/26/16 [History] Amoxicillin/Potassium Clav [Augmentin 875-125 Tablet] 1 each PO BID #14 tablet 06/29/16 [Rx] Patient Handouts: Diverticulitis, Low-Fiber Diet Referrals: Macrina Crook NP [Primary Care Provider] - - Patient Data Vitals - Most Recent: Last Vital Signs Temp 97.3 F 06/29/16 06:50 Pulse 83 06/29/16 06:50 Resp 16 06/29/16 06:50 BP 144/80 H 06/29/16 06:50 Pulse Ox 97 06/29/16 06:50 Weight - Most Recent: 160 lb 12.812 oz I&O - Last 24 hours: Intake & Output 06/28/16 06/29/16 06/29/16 22:59 06:59 14:59 Intake Total 700 50 530 Output Total 1500 1200 Balance -800 -1150 530 Med Orders - Current: Current Medications Acetaminophen (Tylenol) 650 mg PO Q4H PRN PRN Reason: Pain (Mild 1-3)/fever Last Admin: 06/29/16 02:58 Dose: 650 mg Albuterol (Ventolin Hfa) 0 gm INH ASDIRECTED PRN PRN Reason: Shortness of Breath Last Admin: 06/28/16 06:24 Dose: 2 puff Albuterol (Proventil Neb Soln) 2.5 mg NEB Q4H PRN PRN Reason: Shortness Of Breath/wheezing Enoxaparin Sodium (Lovenox) 40 mg SUBCUT Q24H [facility] Last Admin: 06/28/16 16:54 Dose: 40 mg Estradiol (Estradiol) 1 mg PO DAILY [facility] Last Admin: 06/29/16 08:28 Dose: 1 mg Ampicillin Sodium/Sulbactam (Sodium 1.5 gm/ Sodium Chloride) 50 mls @ 100 mls/ hr IV Q6HR [facility] Last Admin: 06/29/16 10:21 Dose: 100 mls/hr Lactobacillus Rhamnosus (Culturelle) 2 cap PO BID [facility] Last Admin: 06/29/16 08:27 Dose: 2 cap Levothyroxine Sodium (Synthroid) 50 mcg PO ACBREAKFAST [facility] Last Admin: 06/29/16 07:22 Dose: 50 mcg Mometasone Furoate/Formoterol Fumar (Dulera 100-5 Mcg) 0 puff IH DAILY [facility] Last Admin: 06/29/16 08:29 Dose: 1 puff Montelukast Sodium (Singulair) 10 mg PO BEDTIME [facility] Last Admin: 06/28/16 20:57 Dose: 10 mg Naloxone HCl (Narcan) 0.4 mg IVPUSH Q2M PRN PRN Reason: Respiratory Distress Ondansetron HCl (Zofran) 4 mg IV Q4H PRN PRN Reason: Nausea/Vomiting Oxycodone HCl (Oxycodone) 5 mg PO Q4H PRN PRN Reason: Pain Sodium Chloride (Saline Flush) 10 ml FLUSH ASDIRECTED PRN PRN Reason: Keep Vein Open Discontinued Medications Hydromorphone HCl (Dilaudid Mining And Quarrying Machinery Repairer 15 Mg In Ns 30 Ml) 0 mg IV ASDIRECTED PRN; Protocol PRN Reason: Pain Last Admin: 06/26/16 15:41 Dose: 15 mg Sodium Chloride (Normal Saline) 1,000 mls @ 999 mls/hr IV ASDIRECTED [facility] Last Admin: 06/26/16 07:58 Dose: 999 mls/hr Sodium Chloride (Normal Saline) 75 mls @ 3 mls/sec IV ASDIRECTED [facility] Stop: 06/26/16 08:46 Ampicillin Sodium/Sulbactam (Sodium 1.5 gm/ Sodium Chloride) 50 mls @ 100 mls/ hr IV ONETIME ONE Stop: 06/26/16 11:34 Last Admin: 06/26/16 11:28 Dose: 100 mls/hr Sodium Chloride (Normal Saline) 1,000 mls @ 125 mls/hr IV ASDIRECTED [facility] Last Admin: 06/27/16 08:25 Dose: 125 mls/hr Magnesium Sulfate 2 gm/ Premix 50 mls @ 25 mls/hr IV ONETIME ONE Stop: 06/27/16 10:59 Last Admin: 06/27/16 10:50 Dose: 25 mls/hr Potassium Chloride 20 meq/Lidocaine HCl 2 ml/ Sodium Chloride 112 mls @ 56 mls/ hr IV Q2H [facility] Stop: 06/27/16 13:29 Last Admin: 06/27/16 12:45 Dose: 56 mls/hr Iopamidol (Isovue-300 (61%)) 100 ml IV . DIRECTED PRN PRN Reason: RADIOLOGY EXAM Stop: 06/27/16 08:35 Ondansetron HCl (Zofran) 4 mg IVPUSH ONETIME ONE Stop: 06/26/16 07:44 Last Admin: 06/26/16 07:59 Dose: 4 mg Sodium Chloride (Saline Flush) 10 ml FLUSH ONETIME PRN PRN Reason: per radiology protocol Stop: 06/26/16 08:35 *Q Meaningful Use (DIS) - VTE *Q VTE Criteria *Q: - Stroke *Q Stroke Criteria *Q: - AMI *Q AMI Criteria *Q:
[2016-06-29 11:32] VITALS: BP 141/81
== END 2016-06-29 11:38 | disposition home or self-care (01) | DRG 244 ==
LOC: JP.ED 06:39 → JP.2SS 14:37
PROVIDERS: ADMIT Hospitalist; ATTEND Hospitalist
DX: K57.32 Diverticulitis of large intestine without perforation or abscess without bleeding (principal); E03.9 Hypothyroidism, unspecified; Z87.891 Personal history of nicotine dependence; J45.909 Unspecified asthma, uncomplicated
CPT/HCPCS: 36415; 74177; 74177-26; 80048; 80053; 81001; 83735; 84443; 85025; 86140; 94762; 96361; 96365; 96375; 99285-25; A9270-GY; J0287; J1170; J1650; J2405; J3475; J3480; J7030; J7040; J7050

== ENCOUNTER 2016-10-31 15:21 | Emergency (ER) | payer BC, OTHER ==
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
[2016-10-31 17:29] VITALS: BP 133/81
--- NOTE | 2016-11-01 09:24 | CR ---
Knee Min 4V Lt INDICATION: pain in left knee with walking. FINDINGS: Negative left knee.
== END 2016-10-31 18:42 | disposition home or self-care (01) ==
LOC: JP.ED 15:21
DX: S89.92XA Unspecified injury of left lower leg, initial encounter (principal); J45.909 Unspecified asthma, uncomplicated; G43.909 Migraine, unspecified, not intractable, without status migrainosus; Z90.710 Acquired absence of both cervix and uterus; Z87.891 Personal history of nicotine dependence; Z88.2 Allergy status to sulfonamides; Z88.1 Allergy status to other antibiotic agents; Z79.899 Other long term (current) drug therapy; X58.XXXA Exposure to other specified factors, initial encounter
CPT/HCPCS: 73564-26-LT; 73564-LT; 99283

== ENCOUNTER 2017-06-08 08:30 | Emergency (ER) | payer BC ==
[2017-06-08 08:56] VITALS: BP 145/79
[2017-06-08] MEDS ORDERED: Ibuprofen 400 MG Tab PO ONE (09:39)
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
== END 2017-06-08 10:36 | disposition home or self-care (01) ==
LOC: JP.ED 08:30
DX: K57.92 Diverticulitis of intestine, part unspecified, without perforation or abscess without bleeding (principal); J45.909 Unspecified asthma, uncomplicated; E03.9 Hypothyroidism, unspecified; F17.210 Nicotine dependence, cigarettes, uncomplicated; Z79.899 Other long term (current) drug therapy; Z88.1 Allergy status to other antibiotic agents; Z88.2 Allergy status to sulfonamides
CPT/HCPCS: 36415; 85027; 86140; 99284; A9270

== ENCOUNTER 2017-06-13 08:48 | Inpatient (IN) | payer BC ==
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
[2017-06-13] MEDS ORDERED: Sodium Chloride 0.9% 1,000 ML IV SCH (09:30)
[2017-06-13] MEDS ORDERED: Iopamidol 612 MG/ML 100 ML Bottle IV SCH (10:30)
[2017-06-13] MEDS ORDERED: Sodium Chloride 0.9% 100 ML IV SCH (10:30)
--- NOTE | 2017-06-13 11:13 | CT ---
Abdomen pelvis CT. History: Left lower quadrant pain. Technique: Oral contrast was administered followed by axial imaging from the lung bases extending thr ough the abdomen and pelvis. Coronal images were reconstructed. Total DLP: 533. Comparison: 26 June 2016. Findings: Limited evaluation of the lower lung chappell demonstrates no abnormalities. In the left lower quadrant there is a focal area of inflammation involving the sigmoid colon. There i s a diverticulum with thickened salas and adjacent inflammation of the fat. The finding is consistent with acute diverticulitis. There is no free air or free fluid. There is no large or small bowel distention. The liver, gallbladder, pancreas, and spleen demonstrate no acute findings. The gallbladder is distended. The kidneys demonstrate symmetric excretion of cont rast. There is a stable cyst of the superior pole left kidney. Impression: 1. Acute diverticulitis of the sigmoid colon left lower quadrant. No evidence of perforation or absce ss.
[2017-06-13] MEDS ORDERED: oxyCODONE 5 MG Tab PO PRN (13:30)
[2017-06-13] MEDS ORDERED: Acetaminophen 325 MG Tab PO PRN (13:30)
[2017-06-13] MEDS ORDERED: Ondansetron 4 MG/2 ML SDV IV PRN (13:30)
[2017-06-13] MEDS ORDERED: Albuterol 8 GM Inhaler INH PRN (13:30)
[2017-06-13] MEDS ORDERED: Sodium Chloride 0.9% 10 ML Syringe FLUSH PRN (13:30)
[2017-06-13] MEDS ORDERED: HYDROmorphone 0.5 MG/0.5 ML Syringe IVPUSH PRN (13:30)
[2017-06-13] MEDS ORDERED: Albuterol 0.083% 2.5 MG/3 ML Neb Soln NEB PRN (13:30)
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
[2017-06-13] MEDS: Sodium Chloride 0.9% 1,000 ML IV SCH (14:12)
[2017-06-13] MEDS: Ampicillin/Sulbactam Na 1.5 GM in Sodium Chloride 0.9% 50 ML IV SCH ×2 (14:12→20:33)
[2017-06-13] MEDS: Potassium Chloride 20 MEQ, Lidocaine 1% 2 ML in Sodium Chloride 0.9% 100 ML IV SCH ×2 (15:02→17:45)
[2017-06-13] MEDS: Enoxaparin 40 MG/0.4 ML Syringe SUBCUT SCH (15:02)
[2017-06-14] MEDS: Ampicillin/Sulbactam Na 1.5 GM in Sodium Chloride 0.9% 50 ML IV SCH ×4 (03:03→20:03)
[2017-06-14] MEDS: Sodium Chloride 0.9% 1,000 ML IV SCH (07:53)
[2017-06-14] MEDS: Levothyroxine 50 MCG Tab PO SCH (07:58)
[2017-06-14] MEDS ORDERED: Formoterol/Mometasone 100-5 MCG 8.8 GM Inhaler IH SCH (09:00)
[2017-06-14] MEDS: Estradiol 0.5 MG Tab PO SCH (09:21)
[2017-06-14] MEDS: Formoterol/Mometasone 200-5 MCG 8.8 GM Inhaler IH SCH (10:00)
--- NOTE | 2017-06-14 12:16 | PCM.PN ---
- General Info Date of Service: 06/14/17 Functional Status: Reports: Pain Controlled, Ambulating - Review of Systems General: Denies: Fever, Weakness, Chills Pulmonary: Reports: No Symptoms Cardiovascular: Reports: No Symptoms Gastrointestinal: Denies: Abdominal Pain, Diarrhea, Difficulty Swallowing, Hematochezia, Melena, Nausea, Vomiting - Patient Data Vitals - Most Recent: Last Vital Signs Temp 97.3 F 06/14/17 10:52 Pulse 88 06/14/17 10:52 Resp 16 06/14/17 10:52 BP 135/73 06/14/17 10:52 Pulse Ox 100 06/14/17 10:52 Weight - Most Recent: 161 lb 6.4 oz I&O - Last 24 Hours: Intake & Output 06/13/17 06/14/17 06/14/17 22:59 06:59 14:59 Intake Total 660 1091 Output Total 400 400 600 Balance 260 691 -600 Lab Results Last 24 Hours: Laboratory Results - last 24 hr 06/14/17 06/14/17 Range/Units 05:40 05:40 WBC 5.1 (4.5-11.0) K/uL RBC 4.13 (3.30-5.50) M/uL Hgb 11.5 L (12.0-15.0) g/dL Hct 36.1 (36.0-48.0) % MCV 87 (80-98) fL MCH 28 (27-31) pg MCHC 32 (32-36) % Plt Count 277 (150-400) K/uL Neut % (Auto) 48 (36-66) % Lymph % (Auto) 35 (24-44) % [place] % (Auto) 11 H (2-6) % Eos % (Auto) 6 H (2-4) % Baso % (Auto) 1 (0-1) % Sodium 140 (140-148) mmol/L Potassium 3.9 (3.6-5.2) mmol/L Chloride 109 H (100-108) mmol/L Carbon Dioxide 25 (21-32) mmol/L Anion Gap 9.9 (5.0-14.0) mmol/L BUN 5 L (7-18) mg/dL Creatinine 0.7 (0.6-1.0) mg/dL Est Cr Clr Drug Dosing 78.98 mL/min Estimated GFR (MDRD) > 60 (>60) Glucose 90 (74-106) mg/dL Calcium 7.9 L (8.5-10.1) mg/dL Med Orders - Current: Current Medications Acetaminophen (Tylenol) 650 mg PO Q4H PRN PRN Reason: Pain (Mild 1-3)/fever Albuterol (Ventolin Hfa) 0 gm INH ASDIRECTED PRN PRN Reason: Shortness of Breath Albuterol (Proventil Neb Soln) 2.5 mg NEB Q4H PRN PRN Reason: Shortness Of Breath/wheezing Enoxaparin Sodium (Lovenox) 40 mg SUBCUT Q24H [facility] Last Admin: 06/13/17 15:02 Dose: 40 mg Estradiol (Estradiol) 1 mg PO DAILY [facility] Last Admin: 06/14/17 09:21 Dose: 1 mg Hydromorphone HCl (Dilaudid) 0.5 mg IVPUSH Q2H PRN PRN Reason: Pain Ampicillin Sodium/Sulbactam (Sodium 1.5 gm/ Sodium Chloride) 50 mls @ 100 mls/ hr IV Q6H [facility] Last Admin: 06/14/17 08:01 Dose: 100 mls/hr Levothyroxine Sodium (Synthroid) 50 mcg PO ACBREAKFAST [facility] Last Admin: 06/14/17 07:58 Dose: 50 mcg Mometasone Furoate/Formoterol Fumar (Dulera 200-5 Mcg) 2 puff IH DAILY@0700 [facility] Montelukast Sodium (Singulair) 10 mg PO BEDTIME [facility] Last Admin: 06/14/17 00:00 Dose: 10 mg Ondansetron HCl (Zofran) 4 mg IV Q4H PRN PRN Reason: Nausea/Vomiting Oxycodone HCl (Oxycodone) 10 mg PO Q4H PRN PRN Reason: Pain (moderate 4-6) Sodium Chloride (Saline Flush) 10 ml FLUSH ASDIRECTED PRN PRN Reason: Keep Vein Open Discontinued Medications Sodium Chloride (Normal Saline) 1,000 mls @ 999 mls/hr IV ASDIRECTED [facility] Last Admin: 06/13/17 09:41 Dose: 999 mls/hr Sodium Chloride (Normal Saline) 100 mls @ 3 mls/sec IV ASDIRECTED [facility] Last Admin: 02/23/18 10:54 Dose: 3 mls/sec Potassium Chloride 20 meq/Lidocaine HCl 2 ml/ Sodium Chloride 112 mls @ 56 mls/ hr IV Q2H [facility] Stop: 06/13/17 18:29 Last Admin: 06/13/17 17:45 Dose: 56 mls/hr Sodium Chloride (Normal Saline) 1,000 mls @ 125 mls/hr IV ASDIRECTED [facility] Last Admin: 06/14/17 07:53 Dose: 125 mls/hr Iopamidol (Isovue-300 (61%)) 100 ml IV . DIRECTED [facility] Last Admin: 06/13/17 10:54 Dose: 100 ml - Exam Quality Assessment: DVT Prophylaxis General: Alert, Oriented, Cooperative, No Acute Distress Lungs: Clear to Auscultation, Normal Respiratory Effort Cardiovascular: Regular Rate, Regular Rhythm, No Murmurs GI/Abdominal Exam: Soft, No Organomegaly, Tender. No: Distended, Guarding, Rigid, Rebound Extremities: Non-Tender, No Pedal Edema Skin: Warm, Dry, Intact - Problem List Review Problem List Initiated/Reviewed/Updated: Yes - My Orders Last 24 Hours: My Active Orders 06/13/17 12:42 Resuscitation Status Routine 06/13/17 13:30 Patient Status [ADT] Routine Ambulate [RC] QID Height and Weight [RC] 0511 Intake and Output [RC] Q12H Notify Provider Vital Signs [RC] ASDIRECTED Oxygen Therapy [RC] PRN Peripheral IV Care [RC] Q12H RT Aerosol Therapy [RC] ASDIRECTED Up ad Ida [RC] ASDIRECTED Up to Chair [RC] QID VTE/DVT Education [RC] .PRN Vital Signs [RC] Q4H Acetaminophen [Tylenol] 650 mg PO Q4H PRN Albuterol [Proventil Neb Soln] 2.5 mg NEB Q4H PRN HYDROmorphone [Dilaudid] 0.5 mg IVPUSH Q2H PRN Ondansetron [Zofran] 4 mg IV Q4H PRN Sodium Chloride 0.9% [Saline Flush] 10 ml FLUSH ASDIRECTED PRN oxyCODONE 10 mg PO Q4H PRN Peripheral IV Insertion Adult [OM.PC] Routine 06/13/17 14:00 Ampicillin/Sulbactam Na [Unasyn] 1.5 gm Sodium Chloride 0.9% [Normal Saline] 50 ml IV Q6H Enoxaparin [Lovenox] 40 mg SUBCUT Q24H 06/14/17 07:00 Mometasone/Formoterol [Dulera 200-5 MCG] 2 puff IH DAILY@0700 06/14/17 12:13 Convert IV to Saline Lock [OM.PC] Routine 06/14/17 Lunch GI Soft Low Fiber [Soft Diet] [DIET] - Plan Plan:: ASSESSMENT AND PLAN DIVERTICULITIS-recurrent episode, first episode was in June 2016. Mild symptoms present over the past few months, significantly worse in the past 10 days. She has failed outpatient management with oral antibiotic therapy and also experience side effects from the antibiotics. Significantly improved since admission yesterday, no longer weak and lightheaded. Abdominal pain has almost totally resolved. -Saline lock IV -Pain and anti-medic therapy as needed -Soft low residue diet -Unasyn 1.5 g IV every 6 hours -Colonoscopy as an outpatient when symptoms have resolved -Consider surgical consult for possible partial colon resection when diverticulitis has resolved ASTHMA-no evidence of acute exacerbation -Continue outpatient medical regimen MAINTENANCE ISSUES -DVT prophylaxis; Lovenox 40 mg subcutaneous daily -GI prophylaxis; not indicated -Delarosa catheter; not indicated -Nutrition; soft low residue diet -Nicotine dependence; not required CODE STATUS-FULL CODE ADMISSION STATUS-patient will be admitted to inpatient status, expect at least a 2 night hospital stay for evaluation and management of problems as outlined above. At the time of this admission I do not reasonably expected evaluation and management of this problem will require more than a 96 hour hospital stay. DISPOSITION-anticipate discharge to home after the hospital stay. PRIMARY CARE PROVIDER-Dr. Correia
[2017-06-14] MEDS: Enoxaparin 40 MG/0.4 ML Syringe SUBCUT SCH (15:26)
[2017-06-14] MEDS: Montelukast 10 MG Tab PO SCH ×2 (20:03)
[2017-06-15] MEDS: Ampicillin/Sulbactam Na 1.5 GM in Sodium Chloride 0.9% 50 ML IV SCH ×2 (02:27→08:56)
[2017-06-15 07:12] VITALS: BP 139/76
[2017-06-15] MEDS: Levothyroxine 50 MCG Tab PO SCH (08:56)
[2017-06-15] MEDS: Estradiol 0.5 MG Tab PO SCH (08:57)
[2017-06-15] MEDS: Formoterol/Mometasone 200-5 MCG 8.8 GM Inhaler IH SCH (09:01)
--- NOTE | 2017-06-15 10:31 | PCM.DCSUM1 ---
Discharge Summary - Hospital Course Brief History: Ms. Beck is a 56-year-old woman who is admitted through the emergency department with diverticulitis, having failed outpatient management. - Discharge Data Discharge Date: 06/15/17 Discharge Disposition: Home, Self-Care 01 Condition: Good - Discharge Diagnosis/Problem(s) (1) Diverticulitis SNOMED Code(s): 069974683 ICD Code: K57.92 - DVTRCLI OF INTEST, PART UNSP, W/O PERF OR ABSCESS W/O BLEED Status: Acute Current Visit: Yes - Patient Summary/Data Hospital Course: Ms. Beck is a 56-year-old woman who was admitted through the emergency department with left lower quadrant abdominal pain secondary to diverticulitis. She reports that she's really not felt well over the past 2 months but has been significantly worse over the past 10 days prior to admission, with increased left lower quadrant abdominal pain, chills, nausea, and diarrhea. She was seen and evaluated in the emergency department 5 days prior to admission. Symptoms were similar to her previous episode of diverticulitis and she was started on oral antibiotic therapy with Flagyl and ciprofloxacin. Despite antibiotic therapy she continued to feel very weak with recurrent chills and ongoing abdominal pain, nausea, and diarrhea. On evaluation in the emergency department , white blood cell count is within normal range, CRP is elevated at 5.1. CT scan of the abdomen and pelvis was obtained that shows evidence of a left sided diverticulitis without evidence of perforation or abscess. On admission she was treated with Unasyn 1.5 g IV every 6 hours as well as IV fluids for hydration. She improved significantly over the next 2 days of hospitalization with resolution of all of her symptoms including abdominal pain. She had no further difficulty with diarrhea and was tolerating a soft diet by the time of discharge. She will be transitioned to oral antibiotic therapy with Augmentin 875 one tablet twice a day. I've instructed her to use a probiotic twice daily over the next month. Chart he has follow-up appointment scheduled with Dr. Correia for June 23. Colonoscopy should be scheduled in approximately one month for follow-up of her diverticulitis and rule out other colon lesions. She will remain on BLAN[place] soft GI diet with low fiber for the next few weeks. Activity will be as tolerated. - Patient Instructions Diet: GI Soft/Low Residue/Low Fiber Activity: As Tolerated Other/Special Instructions: Take a probiotic twice daily for the next 4 weeks. Patient already has follow-up appointment scheduled with Dr. Correia for June 23. She should have a colonoscopy scheduled in approximately one month for follow-up of her diverticulitis. - Discharge Plan Prescriptions/Med Rec: Amoxicillin/Potassium Clav [Augmentin 875-125 Tablet] 1 each PO BID #20 tablet Home Medications: Home Meds Albuterol [Proair HFA] 1 puff PO ASDIRECTED PRN 12/13/15 [History] Estradiol 1 mg PO DAILY 12/13/15 [History] Levothyroxine [Synthroid] 50 mcg PO ACBREAKFAST 12/13/15 [History] Montelukast [Singulair] 10 mg PO DAILY 12/13/15 [History] Multivitamin [Multi-Vitamin Daily] 1 tab PO DAILY 06/26/16 [History] [place]-3 Fatty Acids [Fish Oil] 300 mg PO DAILY 06/26/16 [History] Biotin 1 tab PO DAILY 10/31/16 [History] Budesonide/Formoterol [Symbicort 160-4.5 MCG] 2 puff INH DAILY 06/13/17 [History ] Amoxicillin/Potassium Clav [Augmentin 875-125 Tablet] 1 each PO BID #20 tablet 06/15/17 [Rx] Referrals: Macrina Crook [employer] [Primary Care Provider] - - Patient Data Vitals - Most Recent: Last Vital Signs Temp 96.8 F 06/15/17 07:09 Pulse 79 06/15/17 07:09 Resp 16 06/15/17 07:09 BP 139/76 06/15/17 07:09 Pulse Ox 100 06/15/17 07:09 Weight - Most Recent: 160 lb 12.8 oz I&O - Last 24 hours: Intake & Output 06/14/17 06/15/17 06/15/17 22:59 06:59 14:59 Intake Total 300 50 320 Output Total 1750 1500 1200 Balance -1450 -4530 -620 Med Orders - Current: Current Medications Acetaminophen (Tylenol) 650 mg PO Q4H PRN PRN Reason: Pain (Mild 1-3)/fever Last Admin: 06/15/17 05:59 Dose: 650 mg Albuterol (Ventolin Hfa) 0 gm INH ASDIRECTED PRN PRN Reason: Shortness of Breath Albuterol (Proventil Neb Soln) 2.5 mg NEB Q4H PRN PRN Reason: Shortness Of Breath/wheezing Enoxaparin Sodium (Lovenox) 40 mg SUBCUT Q24H [facility] Last Admin: 06/14/17 15:26 Dose: 40 mg Estradiol (Estradiol) 1 mg PO DAILY [facility] Last Admin: 06/15/17 08:57 Dose: 1 mg Hydromorphone HCl (Dilaudid) 0.5 mg IVPUSH Q2H PRN PRN Reason: Pain Ampicillin Sodium/Sulbactam (Sodium 1.5 gm/ Sodium Chloride) 50 mls @ 100 mls/ hr IV Q6H [facility] Last Admin: 06/15/17 08:56 Dose: 100 mls/hr Levothyroxine Sodium (Synthroid) 50 mcg PO ACBREAKFAST [facility] Last Admin: 06/15/17 08:56 Dose: 50 mcg Mometasone Furoate/Formoterol Fumar (Dulera 200-5 Mcg) 2 puff IH DAILY@0700 [facility] Last Admin: 06/15/17 09:01 Dose: 2 puff Montelukast Sodium (Singulair) 10 mg PO BEDTIME [facility] Last Admin: 06/14/17 20:03 Dose: 10 mg Ondansetron HCl (Zofran) 4 mg IV Q4H PRN PRN Reason: Nausea/Vomiting Oxycodone HCl (Oxycodone) 10 mg PO Q4H PRN PRN Reason: Pain (moderate 4-6) Sodium Chloride (Saline Flush) 10 ml FLUSH ASDIRECTED PRN PRN Reason: Keep Vein Open Discontinued Medications Sodium Chloride (Normal Saline) 1,000 mls @ 999 mls/hr IV ASDIRECTED [facility] Last Admin: 06/13/17 09:41 Dose: 999 mls/hr Sodium Chloride (Normal Saline) 100 mls @ 3 mls/sec IV ASDIRECTED [facility] Last Admin: 06/13/17 10:54 Dose: 3 mls/sec Potassium Chloride 20 meq/Lidocaine HCl 2 ml/ Sodium Chloride 112 mls @ 56 mls/ hr IV Q2H [facility] Stop: 06/13/17 18:29 Last Admin: 06/13/17 17:45 Dose: 56 mls/hr Sodium Chloride (Normal Saline) 1,000 mls @ 125 mls/hr IV ASDIRECTED [facility] Last Admin: 06/14/17 07:53 Dose: 125 mls/hr Iopamidol (Isovue-300 (61%)) 100 ml IV . DIRECTED [facility] Last Admin: 06/13/17 10:54 Dose: 100 ml *Q Meaningful Use (DIS) - VTE *Q VTE Criteria *Q: - Stroke *Q Stroke Criteria *Q: - AMI *Q AMI Criteria *Q:
== END 2017-06-15 11:32 | disposition home or self-care (01) | DRG 244 ==
LOC: JP.ED 08:48 → JP.MS 12:40
PROVIDERS: ADMIT Hospitalist; ATTEND Hospitalist
DX: K57.32 Diverticulitis of large intestine without perforation or abscess without bleeding (principal); J45.909 Unspecified asthma, uncomplicated; Z87.891 Personal history of nicotine dependence; H54.7 Unspecified visual loss; E03.9 Hypothyroidism, unspecified; Z87.898 Personal history of other specified conditions; Z88.1 Allergy status to other antibiotic agents; Z88.2 Allergy status to sulfonamides; Z88.8 Allergy status to other drugs, medicaments and biological substances
CPT/HCPCS: 36415; 74177; 74177-26; 80048; 80053; 81001; 85025; 86140; 96360; 99285-25; A9270-GY; J0287; J1650; J3480; J7030; J7040; J7050; Q9967

== ENCOUNTER 2017-07-11 06:44 | Day surgery (SDC) | payer BC ==
[2017-07-11] MEDS ORDERED: Lactated Ringers 1,000 ML IV SCH (07:15)
[2017-07-11] MEDS ORDERED: Propofol 200 MG/20 ML SDV ONE (07:30)
[2017-07-11] MEDS ORDERED: Midazolam 1 MG/ML 2 ML SDV ONE (07:30)
[2017-07-11] MEDS ORDERED: fentaNYL 100 MCG/2 ML SDV ONE (07:30)
[2017-07-11 10:55] VITALS: BP 120/76
--- NOTE | 2017-07-11 13:23 | OR ---
DATE OF PROCEDURE: 07/11/2017 PREOPERATIVE DIAGNOSIS: Resolved diverticulitis. POSTOPERATIVE DIAGNOSIS: Unremarkable colonoscopy. PROCEDURE: Colonoscopy to the cecum. SURGEON: Shon Champagne M.D. ANESTHESIA: IV anesthesia with monitored anesthesia care. INDICATION: This 56-year-old white female is referred for a colonoscopy. About a month ago, she was in the hospital with presumed diverticulitis with left lower quadrant abdominal pain. She had a similar episode about a year ago. She is referred for a colonoscopy to evaluate for this. I counseled her for the procedure including risks and alternatives, and she gave her informed consent to proceed. DESCRIPTION OF PROCEDURE: The patient was placed in the left lateral decubitus position. IV anesthesia was administered by the Anesthesia Service. Time-out was held. A rectal exam was performed, which was unremarkable. The flexible video Olympus colonoscope was introduced through her anus, up her rectum, and out her colon all the way to the cecum. There was a lot of spasm in the sigmoid colon area. Once the cecum was reached, the scope was slowly withdrawn, examining the mucosa throughout. No mucosal abnormalities were noted. The scope was retroflexed in the rectum with the distal rectum appearing unremarkable. The scope was straightened and removed. She tolerated the procedure well. Shon Champagne MD /[id number]
== END 2017-07-11 10:45 | disposition home or self-care (01) ==
LOC: JP.SDS 06:44
PROVIDERS: ATTEND Surgery
DX: K57.32 Diverticulitis of large intestine without perforation or abscess without bleeding (principal); Z88.1 Allergy status to other antibiotic agents; Z88.2 Allergy status to sulfonamides
CPT/HCPCS: 45378; J2250; J2704; J3010; J7120